=== PATIENT | female | born 1980 | race Caucasian/White ===

== ENCOUNTER 2025-04-06 13:15 | Outpatient (CLI) | payer BC, SELFPAY | END 2025-04-06 13:16 | disposition home or self-care (01) | LOC: INJ CL 13:19 | PROVIDERS: PCP Internal Medicine; Visit Provider Family Medicine | DX: M54.16 Radiculopathy, lumbar region (principal); M51.26 Other intervertebral disc displacement, lumbar region | CPT/HCPCS: 64483; J1100; Q9966 ==